=== PATIENT | female | born 1975 | race Two or more races ===

== ENCOUNTER 2019-11-18 13:26 | Emergency (ER) | payer OTHER ==
[~2019-11-18] VITALS: Ht 152.4 cm; Wt 70.0 kg
[2019-11-18 13:40] VITALS: BP 108/68
[2019-11-18 13:57] LABS: BILIRUBIN,URINE NEGATIVE (NEG); CLARITY,URINE CLEAR; COLOR,URINE YELLOW; NITRITE,URINE NEGATIVE (NEG); PROTEIN,URINE NEGATIVE (NEG-TRACE); UROBILINOGEN,URINE 0.2 mg/dL (0.2 mg/dL)
[2019-11-18 14:04] LABS: BACTERIA,URINE FEW /HPF (0-FEW); SQUAMOUS EPITHELIAL CELL,UR MOD /LPF
--- NOTE | 2019-11-18 14:39 | RAD ---
EXAM: Abdomen and pelvis CT without intravenous contrast. HISTORY: Right flank pain. TECHNIQUE: Computed tomographic images of the abdomen and pelvis were obtained without contrast. Multiplanar reformatting was performed. *One or more of the following individualized dose reduction techniques were utilized for this examination: 1. Automated exposure control. 2. Adjustment of the mA and/or kV according to patient size. 3. Use of iterative reconstruction technique. COMPARISON: None. FINDINGS: Evaluation of the lower thorax demonstrates no infiltrate or pleural effusion. No suspicious nodule is seen. The heart is normal in size. No focal hepatic lesion is seen. The gallbladder, pancreas, spleen and adrenal glands are unremarkable. The stomach is unremarkable. There is no appendicitis. There is no bowel obstruction. There is no abnormal bowel wall thickening. There is a suspected tiny cyst or scar within the posterior upper mid zone of the right kidney. There is ill-defined approximate 2.0 cm hypodense lesion within the lateral mid zone at the right kidney. There is no evidence of a renal or ureteral stone. There are multiple pelvic calcifications due to phleboliths. The uterus and adnexal regions are unremarkable. There is trace pelvic free fluid, within physiologic limits for a premenopausal female. There are degenerative changes involving the spine. 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 IMPRESSION: 1. No evidence of nephroureterolithiasis or hydronephrosis. 2. Hypodense ill-defined lesion within the lateral mid zone of the right kidney measuring approximately 2.0 cm. This may be a cyst. This is difficult to characterize in the absence of contrast. Sonographic imaging may be useful to confirm benignity. There is also a tiny cyst or suspected scar within the upper mid zone of the right kidney. Electronically signed by: Queta Frausto MD (11/18/2019 2:36 PM) [facility]
[2019-11-18] MEDS ORDERED: METH4TAB2 PO (15:03)
[2019-11-18] MEDS ORDERED: NAPR-695 PO (15:03)
[2019-11-18] MEDS ORDERED: CYCL10TA2 PO (15:03)
--- NOTE | 2019-11-18 15:03 | PHYS DOC ---
Past Medical History Past Medical History: Kidney Stone Past Surgical History: No Surgical History Smoking Status: Never Smoker Alcohol Use: None Adult General Chief Complaint Chief Complaint: FLANK PAIN HPI HPI Patient is a 44 year old female with a history of kidney stones who presents the ED today complaining of 8 out of 10 sharp intermittent right flank pain radiating to the right lower back into the right lower extremity, symptoms began a week ago. Patient denies any injury. Denies any urgency frequency or dysuria. She reports symptoms are worse on certain movements. She states sometimes immobilization relieves her symptoms. Denies any loss of bowel/bladder function. Patient is [place]-speaking and interpretation is provided by Review of Systems Review of Systems Constitutional: Denies fever or chills [] Eyes: Denies change in visual acuity, redness, or eye pain [] HENT: Denies nasal congestion or sore throat [] Respiratory: Denies cough or shortness of breath [] Cardiovascular: No additional information not addressed in HPI [] GI: Denies abdominal pain, nausea, vomiting, bloody stools or diarrhea [] : Reports right flank pain. Denies dysuria or hematuria [] Musculoskeletal: Denies back pain or joint pain [] Integument: Denies rash or skin lesions [] Neurologic: Denies headache, focal weakness or sensory changes [] All other systems were reviewed and found to be within normal limits, except as documented in this note. Physical Exam Physical Exam Constitutional: Well developed, well nourished, no acute distress, non-toxic appearance. [] HENT: Normocephalic, atraumatic, bilateral external ears normal, oropharynx moist, no oral exudates, nose normal. [] Eyes: PERRLA, EOMI, conjunctiva normal, no discharge. [] Neck: Normal range of motion, no tenderness, supple, no stridor. [] Cardiovascular:Heart rate regular rhythm, no murmur [] Lungs & Thorax: Bilateral breath sounds clear to auscultation [] Abdomen: Bowel sounds normal, soft, no tenderness, no masses, no pulsatile masses. [] Skin: Warm, dry, no erythema, no rash. [] Back: No tenderness, no CVA tenderness. [] Extremities: No tenderness, no cyanosis, no clubbing, ROM intact, no edema. [] Neurologic: Alert and oriented X 3, normal motor function, normal sensory function, no focal deficits noted. [] Psychologic: Affect normal, judgement normal, mood normal. [] Current Patient Data Vital Signs Vital Signs Date Time Temp Pulse Resp B/P (MAP) Pulse Ox O2 Delivery O2 Flow Rate FiO2 11/18/19 13:40 98.7 84 16 108/68 (81) 100 Room Air 98.7 Lab Values Laboratory Tests Test 11/18/19 13:40 11/18/19 13:41 Urine Collection Type Unknown Urine Color Yellow Urine Clarity Clear Urine pH 6.0 (<5.0-8.0) Urine Specific [place] 1.015 (1.000-1.030) Urine Protein Negative mg/dL (NEG-TRACE) Urine Glucose (UA) Negative mg/dL (NEG) Urine Ketones (Stick) Negative mg/dL (NEG) Urine Blood Small (NEG) Urine Nitrite Negative (NEG) Urine Bilirubin Negative (NEG) Urine Urobilinogen Dipstick 0.2 mg/dL (0.2 mg/dL) Urine Leukocyte Esterase Negative (NEG) Urine RBC 1-2 /HPF (0-2) Urine WBC 1-4 /HPF (0-4) Urine Squamous Epithelial Cells Mod /LPF Urine Bacteria Few /HPF (0-FEW) POC Urine HCG, Qualitative Hcg negative (Negative) EKG EKG [] Radiology/Procedures Radiology/Procedures []PROCEDURE: CT ABDOMEN PELVIS WO CONTRAST EXAM: Abdomen and pelvis CT without intravenous contrast. HISTORY: Right flank pain. TECHNIQUE: Computed tomographic images of the abdomen and pelvis were obtained without contrast. Multiplanar reformatting was performed. *One or more of the following individualized dose reduction techniques were utilized for this examination: 1. Automated exposure control. 2. Adjustment of the mA and/or kV according to patient size. 3. Use of iterative reconstruction technique. COMPARISON: None. FINDINGS: Evaluation of the lower thorax demonstrates no infiltrate or pleural effusion. No suspicious nodule is seen. The heart is normal in size. No focal hepatic lesion is seen. The gallbladder, pancreas, spleen and adrenal glands are unremarkable. The stomach is unremarkable. There is no appendicitis. There is no bowel obstruction. There is no abnormal bowel wall thickening. There is a suspected tiny cyst or scar within the posterior upper mid zone of the right kidney. There is ill-defined approximate 2.0 cm hypodense lesion within the lateral mid zone at the right kidney. There is no evidence of a renal or ureteral stone. There are multiple pelvic calcifications due to phleboliths. The uterus and adnexal regions are unremarkable. There is trace pelvic free fluid, within physiologic limits for a premenopausal female. There are degenerative changes involving the spine. 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 IMPRESSION: 1. No evidence of nephroureterolithiasis or hydronephrosis. 2. Hypodense ill-defined lesion within the lateral mid zone of the right kidney measuring approximately 2.0 cm. This may be a cyst. This is difficult to characterize in the absence of contrast. Sonographic imaging may be useful to confirm benignity. There is also a tiny cyst or suspected scar within the upper mid zone of the right kidney. Electronically signed by: Queta Frausto MD (11/18/2019 2:36 PM) [facility] [place]CTATED and SIGNED BY: QUETA FRAUSTO MD DATE: 11/18/19 1436 Course & Med Decision Making Course & Med Decision Making Pertinent Labs and Imaging studies reviewed. (See chart for details) This is a 44-year-old female patient presenting to the ED today with right flank pain radiating to the right lower back into the right lower extremity, symptoms for 2 weeks. Urine analysis negative for infection, CT of the abdomen and pelvic is negative for any acute kidney stones. Noted for possible cyst on the right kidney. D/c to home. F/u with Urologist or PCP in one week Maribel Disclaimer Maribel Disclaimer This electronic medical record was generated, in whole or in part, using a voice recognition dictation system. Departure Departure Impression: Primary Impression: Renal cyst, acquired, right Disposition: HOME, SELF-CARE Condition: STABLE Patient Instructions: Back Pain, Adult, [id number] Additional Instructions: You were evaluated in the emergency room for back pain. Your CAT scan was noted for a possible cyst on your right kidney. Take the prescribed medications as ordered. Follow-up with your doctor in 1 to 2 weeks or urologist of your choice. Scripts Naproxen (NAPROXEN) 375 Mg Tablet 1 TAB PO BID for pain, #20 TAB 0 Refills with food Prov: MUTUNGA,JORGE RECYCLING TECH 11/18/19 Cyclobenzaprine Hcl (CYCLOBENZAPRINE HCL) 10 Mg Tablet 1 TAB PO TID, #30 TAB Prov: MUTUNGA,JORGE RECYCLING TECH 11/18/19 Methylprednisolone (MEDROL) 4 Mg Tab.ds.pk 1 PKG PO UD, #1 PKG Prov: JORGE MAKI APRN 11/18/19 JORGE MAKI APRN Nov 18, 2019 15:03
== END 2019-11-18 15:20 | disposition home or self-care (01) ==
LOC: ER 13:26
DX: N28.1 Cyst of kidney, acquired (principal); R10.9 Unspecified abdominal pain; M79.604 Pain in right leg; Z87.442 Personal history of urinary calculi
CPT/HCPCS: 74176; 81001; 81025; 99284

== ENCOUNTER → 2020-10-31 | Outpatient (CLI) | payer BC ==
[~2020-10-31] MED LIST: CYCL10TA2 PO; IOHEXOL 300 MG/ML 100ML VIAL. IV ONE; METH4TAB2 PO; NAPR-695 PO
--- NOTE | 2020-10-31 11:38 | RAD ---
EXAMINATION: CT ABDOMEN+PELVIS WO+W CLINICAL HISTORY: Right renal mass TECHNIQUE: Four-phase multiplanar imaging obtained through the abdomen with and without intravenous c ontrast including unenhanced, corticomedullary, nephrographic, and excretory phase imaging of the kid neys. Additional multiplanar imaging obtained through the entire abdomen and pelvis with intravenous contrast in the portal venous phase. CT Dose Reduction Employed: One or more of the following individualized dose reduction techniques wer e utilized for this examination: 1. Automated exposure control 2. Adjustment of the mA and/or kV ac cording to patient size 3. Use of iterative reconstruction technique. COMPARISON: CT abdomen/pelvis 11/18/2019 FINDINGS: KIDNEYS AND URINARY TRACT: Right Kidney: 1.3 cm cortical lesion in the mid to lower pole which is near isodense to the adjacent parenchyma precontrast imaging and no significant contrast enhancement on postcontrast imaging. Preco ntrast attenuation approximately 13 HU. Postcontrast attenuation measures up to 22 HU in the nephrogr aphic phase with mild washout during the excretory phase. Questionable thin internal septation(s) poo rly visualized. No evidence of enhancing nodularity or calcifications. Additional tiny hypoenhancing cortical focus in the posterior upper pole, too small adequately characterize but likely benign. Left Kidney: No renal calculi or mass. Collecting System: No hydronephrosis. No evidence of filling defect or stricture in the partially vis ualized opacified collecting system. Bladder: Minimally filled urinary bladder suboptimally evaluated. ABDOMEN AND PELVIS: Partially visualized heart and lung bases unremarkable. Multiple small old calcified granulomas in the spleen. Liver, gallbladder, pancreas, and adrenal glan ds unremarkable. Uterus and adnexa are within normal limits for patient's age. No bowel dilation or definite wall thickening. Normal air-filled appendix. No abdominal aortic or iliac artery aneurysm. No lymphadenopathy. Partially visualized degenerative changes in the thoracic spine. IMPRESSION: 1.3 cm right renal cyst with questionable poorly visualized septation(s), likely benign but renal ult rasound could be obtained for further evaluation as indicated. Electronically signed by: Ranjan Mcmullen DO (10/31/2020 11:35 AM) [id number]
--- NOTE | 2020-10-31 12:10 | RAD ---
XR LUMBAR SPINE 2-3V History: Reason: SCIATICA / Spl. Instructions: / History: Comparison: None. Technique: AP, lateral and spot views of the lumbar spine. Findings: 5 nonrib-bearing lumbar vertebral segments. There is no evidence for fracture. Alignment is normal. No destructive osseous lesions are seen. Disc spaces are preserved. Soft tissues are unremarkable. IMPRESSION: 1. No significant lumbar abnormality. Electronically signed by: Gaudencio Garcia MD (10/31/2020 12:08 PM) [facility]
--- NOTE | 2020-11-01 11:04 | RAD ---
DATE: 10/31/2020 9:34 AM EXAM: DIGITAL SCREEN BILAT W/CAD HISTORY: Screening COMPARISON: 07/14/2018 Bilateral full field craniocaudal and mediolateral oblique images were obtained using digital technique. This study was interpreted with the benefit of Computerized Aided Detection (CAD). FINDINGS: Breast Density: SCATTERED The breast parenchyma shows scattered fibroglandular densities. Breast parenchyma level B No suspicious masses, microcalcifications or architectural distortion is present to suggest malignancy in either breast. The visualized axillae are unremarkable. IMPRESSION: No mammographic evidence of malignancy. BI-RADS CATEGORY: 1 NEGATIVE RECOMMENDED FOLLOW-UP: 12M 12 MONTH FOLLOW-UP Annual screening mammography is recommended, unless clinically indicated sooner based on symptoms or change in physical exam. PQRS compliance statement: Patient information was entered into a reminder system with a target due date for the next mammogram. Mammography is a sensitive method for finding small breast cancers, but it does not detect them all and is not a substitute for careful clinical examination. A negative mammogram does not negate a clinically suspicious finding and should not result in delay in biopsying a clinically suspicious abnormality. "Our facility is accredited by the [employer] Mammography Program."
== END ==
LOC: CT 09:44
PROVIDERS: ATTEND Family Medicine
DX: Z12.31 Encounter for screening mammogram for malignant neoplasm of breast (principal); N28.1 Cyst of kidney, acquired; M54.30 Sciatica, unspecified side; N28.89 Other specified disorders of kidney and ureter
CPT/HCPCS: 72100; 74178; 77067; Q9967

== ENCOUNTER → 2020-11-07 | Outpatient (CLI) | payer BC ==
[~2020-11-07] MED LIST changes: -IOHEXOL 300 MG/ML 100ML VIAL. IV ONE
--- NOTE | 2020-11-07 11:14 | RAD ---
PROCEDURE: US RENAL BILAT STUDY DATE: 11/07/2020 CLINICAL INDICATION / HISTORY: Reason: R RENAL CYST / Spl. Instructions: / History: . TECHNIQUE: Real time ultrasound with hard copy imaging was performed. COMPARISON: Abdomen CT with and without IV contrast of 10/11/2020 FINDINGS: Ultrasound evaluation demonstrates the kidneys are normal in size and shape with with appro priate echogenicity and cortical thickness. There is no solid mass, hydronephrosis, or demonstrable stone formation. A cyst is present in the rig ht midpole kidney measuring 1.2 x 1.0 x 1.0 cm. The right kidney measures 10.5 x 4.2 x 3.8 cm and the left kidney measures 10.3x 4.5 x 5.6 cm. The urinary bladder appears normal with a volume of 8.6 mL. Bilateral ureteral jets were observed. No post void images were acquired.. IMPRESSION: Cyst in the right kidney measuring 1.2 x 1.0 x 1.0 cm appears sonographically benign and based on this imaging appearance, does not require additional imaging follow-up. Electronically signed by: Franko Segovia MD (11/07/2020 11:12 AM) [id number]
== END ==
LOC: US 06:56
PROVIDERS: ATTEND Physician Assistant
DX: N28.1 Cyst of kidney, acquired (principal); Z96.0 Presence of urogenital implants
CPT/HCPCS: 76770